=== PATIENT | male | born 1980 | race Caucasian/White ===

== ENCOUNTER 2025-08-25 13:48 | Outpatient (CLI) | payer OTHER, SELFPAY ==
--- NOTE | ~2025-08-25 | CT_ITS ---
EXAMINATION: CT sinus wo con COMPARISON: None HISTORY: chronic rhinitis TECHNIQUE: Axial images were obtained without IV contrast. Sagittal, coronal reconstruction images were obtained from the axial views. CT scan performed using dose optimization techniques including the following automated exposure control; adjustment of mA and/or kV; use of iterative reconstruction technique. Automatic exposure control was used to reduce radiation dose. Permanent radiation dose record is archived to PACS. FINDINGS: The visualized brain parenchyma, optic globes and soft tissues appear unremarkable Moderate mucosal thickening in the frontal sinus, minimal mucosal thickening in the right frontal sinus. Minimal mucosal thickening in the ethmoidal air cells. Left maxillary sinus mucous retention cyst 1.5 x 1.56 cm. Minimal mucosal thickening right maxillary sinus. Postsurgical changes, the outflow to the maxillary sinuses are grossly patent. Nasal septum is in the midline. No significant thickening of the turbinates on either the nasal cavities. Minimal mucosal thickening in the sphenoid sinus. There is no osseous destruction or wall thickening identified. IMPRESSION: Sinusitis detailed above Reviewed, dictated and finalized at location P. ING LOT MANAGER IMPRESSION: Sinusitis detailed above
--- OUTSIDE RECORDS SUMMARY | 2025-08-25 14:10 | XMS_ITS | Encounter Summary ---
Author Organization [facility] Address [address] [place] [address] Care Team Providers Care Associate Publisher Name Role Phone Lady Mooney DO Primary Care Provider Encounter Details Date Type Department Care Team (Late st Contact Info) Description 01/28/2016 Nurse Triage Report [facility] ABSTRACTION Deysi Zavala, RN Social History Tobacco Use Types Packs/Day Years Used Date Smoking Tobacco: Every Day Cigarettes 1 7 Smokeless Tobacco: Never Alcohol Use Standard Drinks/Week Comments No 0 (1 standard drink = 0.6 oz pur e alcohol) Sex and Gender Information Value Date Recorded Sex Assigned at Not on file Legal Sex Male 9:18 AM CDT Gender Identity Not on file Sexual Orientation Not on file documented as of this encounter Progress Notes * Deysi Zavala, SOL - 01/28/2016 7:45 AM CDT CHART DOCUMENTATION ONLY Call Type: Triage Call Presenting Problem: I have pain in the back of my head. Associated Symptoms: throbbing pain in upper left side in back of head Onset: 3 days Location: back of head Pain Assessment: 1 - 10 with 10 being the most severe pain 4 Treatment so far for current presenting problem: motrin History (Clinical Problems): none Medications: zoloft, welbutrin Medication reactions: NKA <<<<<<<< TRIAGE NOTE >>>>>>>> <<<<<<<< TRIAGE/OUTCOME >>>>>>>> Guideline Title: Headache Recommended Disposition: See Provider within 24 hours Original Inclination: Call Provider/See in 24 Intended Action: Call or See Provider within 24 hrs Physician Contacted: No Typical headache AND usual therapy is not available or is not working ? YES documented in this encounter Plan of Treatment Not on file documented as of this encounter Visit Diagnoses Not on filedocumented in this encounter Additional Health Concerns Assessment Noted Time PHQ-9 Depression Total Score: 6 01/10/20 16 8:00 AM CDT documented as of this encounter Care Teams Associate Publisher Relationship Specialty [place] [address] [address] PCP - General Family Practice 07/22/15 documented as of this encounter
--- OUTSIDE RECORDS SUMMARY | 2025-08-25 14:10 | XMS_ITS | Clinical Summary ---
Author Organization [facility] Address [address] [place] [address] Care Team Providers Care Trailer Steerer Name Role Phone Allyson Cortez Shabbir Primary Care Provider [phone] Source Comments [facility],non-owned Affiliates and Associated Physician Practices is amultiple site organization consisting of ambulatory clinics and hospital sitesin [place], [place], [place] and [place]. This disclosure is being madepursuant to the Care Everywhere program and may not contain all information available regarding this patient. Last updated 18.[facility] Allergies Active Allergy Reactions Criticality Noted Date Comments Molds & Smuts Shortness of Breath,Rhinitis,Cough High 10/18/2023 DANDER Medications * Be aware that medications may not be up to date on this document. Alwaysverify current medications with the patient. hydroCHLOROthiazi de (Hydrodiuril) 12.5 MG Take 2 (two) tablets by mouth once daily Active venlafaxine (Effexor) 100 MG tablet Take 1 (one) tablet by mouth 3 times daily with meals Active predniSONE (Deltasone) 5 MG tablet 4 tab po daily x 1 week, then 3 tab po daily x 1 week and then 2 tab po daily x 1 week and then 1 tab daily until finished and then stop 70 tablet 3 Active lisinopril (Prinivil; Zestril) 20 MG tablet 3 Active amphetamine-dextr oamphetamine (Adderall) 15 MG tablet TAKE 1 TABLET DAILY BY MOUTH IN THE AFTERNOON 3 Active Nebulizers (Vios Aerosol Delivery System) [facility] as directed 4 Active montelukast (Singulair) 10 MG tablet Take 1 (one) tablet by mouth once daily 4 Active methylPREDNISolon e (Medrol Dosepak) 4 MG tablet FOLLOW PACKAGE DIRECTIONS 4 Active levoFLOXacin (Levaquin) 750 MG tablet TAKE 1 TABLET BY MOUTH EVERY DAY FOR 10 DAYS 4 Active albuterol-ipratro pium (Duo-Neb) 0.5-2.5 (3) MG/3ML nebulizer solution Inhale 3 mL by mouth every 6 hours as needed 4 Active HYDROcodone-aceta minophen ([place]) 5-325 MG tablet Take 1 (one) tablet by mouth every 8 hours as needed 4 Active Wixela Inhub 100-50 MCG/ACT inhaler Inhale 1 (one) puff by mouth 4 Active hydroxychloroquin e (Plaquenil) 200 MG tabletIndications :Systemic lupus erythematosus with other organ involvement, unspecified SLE type (HCC),Polyarthral birdie Take 1 (one) tablet by mouth 2 times daily 180 tablet 4 Active Trelegy Ellipta 200-62.5-25 MCG/ACT inhaler 4 Active Active Problems Problem Noted Date Diagnosed Date Systemic lupus erythematosus 10/17/2023 Social History Tobacco Use Types Packs/Day Years Used Date Smoking Tobacco: Never Assessed Sex and Gender Information Value Date Recorded Sex Assigned at Male 08/05/2023 1:40 PM CDT Legal Sex Male 8:52 AM CDT Gender Identity Male 08/05/2023 1:40 PM CDT Sexual Orientation Straight 08/05/2023 1: 40 PM CDT Last Filed Vital Signs Vital Sign Reading Time Taken Comments Blood Pressure 134/80 01/30/2024 9:49 AM CDT Pulse 87 01/30/2024 9:49 AM CDT Temperature - - Respiratory Rate - - Oxygen Saturation 94% 01/30/2024 9:49 AM CDT Inhaled Oxygen Concentration - - Weight 94.3 kg (208 lb) 01/30/2024 9:49 AM CDT Height 182.9 cm (6') 01/30/2024 9:49 AM CDT Body Mass Index 28.21 01/30/2024 9:49 AM CDT Plan of Treatment Health Maintenance Due Date Last Done Comments LIPID TESTING 1982 HIV SCREENING 1997 DTAP/TDAP/TD VACCINES (1 - Tdap) 2001 HEPATITIS B VACCINE (1 of 3 - 19+ 3-dose series) 2001 HPV VACCINE (1 - 3-dose SCDM series) 2009 DEPRESSION SCREENING 10/15/2024 COVID-19 VACCINE (1 - 2023-2 5 season) 2025 INFLUENZA VACCINE (#1) 2025 SCREENING FOR DIABETES 01/10/2027 4, 07/25/2023 ZOSTER VACCINE (1 of 2) 2032 HEPATITIS C SCREENING Completed 07/25/2023 HIB VACCINE Aged Out No longer eligi ble based on patient's age to complete this topic MENINGOCOCCAL (Group B) VACCINE SHARED DECISION-MAKING Aged Out No longer eligible based on patient's age to complete this topic MENINGOCOCCAL GROUPS A/C/Y/W VACCINE Aged Out No longer eligible b ased on patient's age to complete this topic PNEUMOCOCCAL VACCINE Aged Out No long er eligible based on patient's age to complete this topic Procedures Procedure Name Priority Date/Time Associated Diagnosis Comments COMPREHENSIVE METABOLIC PANEL Routine 01/11/2024 11:15 AM CDT Systemic lupus erythematosus with other organ involvement, unspecified SLE type Polyarthralgia Positive CARLITO (antinuclear antibody) Elevated sed rate [place] Vitamin D deficiency High risk medication use Immunosuppressed status HEPATITIS SCREEN ACUTE ([facility]) Routine 07/25/2023 2:06 PM CDT Polyarthralgia Positive CARLITO (antinuclear antibody) Elevated sed rate [place] Vitamin D deficiency from Last 3 Months or Most Recently Relevant to Health Maintenance Results * (ABNORMAL) COMPREHENSIVE METABOLIC PANEL (01/11/2024 11:15 AM CDT) Glucose 72 70 - 99 mg/dL [facility] INSURANCE BILL BUN 34(H) 6 - 24 mg/dL [facility] INSURANCE BILL Creatinine 1.11 0.76 - 1.27 mg/dL [facility] INSURANCE BILL eGFR by CKD-EPI 86 >59 mL/min/1.7 3 [facility] INSURANCE BILL BUN/Creatinine Ratio 31(H) 9 - 20 [facility] INSURANCE BILL Sodium 138 134 - 144 mmol/L [facility] INSURANCE BILL Potassium 4.9 3.5 - 5.2 mmol/L [facility] INSURANCE BILL Chloride 105 96 - 106 mmol/L [facility] INSURANCE BILL CO2 15(L) 20 - 29 mmol/L [facility] INSURANCE BILL Calcium 9.5 8.7 - 10.2 mg/dL [facility] INSURANCE BILL Protein Total 7.9 6.0 - 8.5 g/dL [facility] INSURANCE BILL Albumin 4.7 4.1 - 5.1 g/dL [facility] INSURANCE BILL Globulin Total 3.2 1.5 - 4.5 g/dL [facility] INSURANCE BILL Albumin/Globulin Ratio 1.5 1.2 - 2.2 [facility] INSURANCE BILL Bilirubin Total <0.2 0.0 - 1.2 mg/dL [facility] INSURANCE BILL Alkaline Phosphatase 152(H) 44 - 121 IU/L [facility] INSURANCE BILL AST 22 0 - 40 IU/L [facility] INSURANCE BILL ALT 28 0 - 44 IU/L [facility] INSURANCE BILL Comment:FASTING Blood BLOOD SPECIMEN / Unknown 01/11/2024 11:15 AM CDT 01/11/2024 Narrative Resulting Agency Comment Lab Testing performed at: [facility] [address] [facility] [id number] Cinthia Hensley MD LAB - CHEMISTRY ORDERABLES Bela l Result [facility] INSURANCE BILL [address] [place] [address] * HEPATITIS SCREEN ACUTE ([facility]) (07/25/2023 2:06 PM CDT) Hepatitis A Virus Antibody IgM Negative Negative [facility] INSURANCE BILL Hepatitis B Virus Surface Antigen Negative Negative [facility] INSURANCE BILL Hepatitis B Core Virus Antibody IgM Negative Negative [facility] INSURANCE BILL Hepatitis C Antibody Non Reactive Non Reactive [facility] INSURANCE BILL Comment:FASTING Blood BLOOD SPECIMEN / Unknown 07/25/2023 2:06 PM CDT 07/25/2023 Narrative Resulting Agency Comment Lab Testing performed at: [facility] [address] [facility] [id number] [place] Cinthia Hensley MD LAB - CHEMISTRY ORDERABLES Bela urbano Result [facility] INSURANCE BILL [address] [place] [address] from Last 3 Months or Most Recently Relevant to Health Maintenance Insurance [employer] Care Teams Trailer Steerer Relationship Specialty Start Date End Date Allyson Cortez [address] [address], [address] [place] [address] PCP - General 08/20/23
--- OUTSIDE RECORDS SUMMARY | 2025-08-25 14:10 | XMS_ITS | Clinical Summary ---
Author Organization [facility] Address [address] [place] [address] Care Team Providers Care Wardrobe Attendant Name Role Phone Lady Mooney Primary Care Provider Allergies No known active allergies Medications prochlorperazine maleate (COMPAZINE) 10 mg tabletIndication s:Unilateral headache,Unequal pupil diameter,Nausea and vomiting, vomiting of unspecified type Take 1 Tablet (10 mg) by mouth every 6 hours as needed for Nausea/Emes is. 30 Tablet 0 01/28/2016 Active sertraline (ZOLOFT) 100 mg tabletIndication s:Anxiety and depression Take 2 Tablet (200 mg) by mouth daily. 60 Tablet 1 04/20/2016 Active buPROPion HCl (WELLBUTRIN XL) 300 mg Extended Release 24 hour tabletIndication s:Anxiety and depression Take 1 Tablet (300 mg) by mouth daily retail marketing manager. 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 Not on any meds. No routine f/u with cards. Current tobacco use 01/10/2016 Major depressive disorder, recurrent episode Immunizations Immunization Administration Dates Next Due (ADACEL/BOOSTRIX)(10 YR UP) TDAP VACCINE, 0.5ML, IM 08/11/2015 Family History Medical History Relation Name Comments Healthy Brother Healthy Father Diabetes Mother Hypertension Mother Healthy Sister Relation Name Status Comments Brother Alive Father Alive Mother Alive Sister Alive Son 1 Alive Son 2 Alive Son 3 Alive Social History Tobacco Use Types Packs/Day Years [...] on file Sexual Orientation Not on file Last Filed Vital Signs Vital Sign Reading Time Taken Comments Blood Pressure 134/84 04/20/2016 10:56 AM CDT Pulse 65 04/20/2016 10:56 AM CDT Temperature - - Respiratory Rate 18 02/17/2016 1:05 PM CDT Oxygen Saturation 98% 04/20/2016 10: 56 AM CDT Inhaled Oxygen Concentration - - Weight 100.4 kg (221 lb 6.4 oz) 016 10:56 AM CDT Height 180.3 cm (5' 11) 04/20/2016 10: 56 AM CDT Body Mass Index 30.88 04/20/2016 10:56 AM CDT Plan of Treatment Health Maintenance Due Date Last Done Comments HEPATITIS B VACCINES (1 of 3 - 19+ 3-dose series) 10/16 HPV VACCINES (1 - 3-dose SCDM series) 2009 INFLUENZA VACCINE (#1) 2025 DTAP/TDAP/TD VACCINES (2 - Td or Tdap) 08/11/2025 Care Teams Wardrobe Attendant Relationship Specialty [place] [address] [address] PCP - General Family Practice 07/22/15
== END 2025-08-25 13:49 | disposition home or self-care (01) ==
PROVIDERS: PCP Emergency Medicine
DX: J31.0 Chronic rhinitis (principal)
CPT/HCPCS: 70486